=== PATIENT | male | born 1995 | race Caucasian/White ===

== ENCOUNTER 2018-02-06 09:31 | Emergency (ER) | payer SELFPAY ==
[~2018-02-06] VITALS: Ht 170.2 cm; Wt 72.6 kg
--- NOTE | 2018-02-06 09:52 | NUR ---
PT AMBULATES TO BED 3
[2018-02-06 09:55] VITALS: BP 143/68
--- NOTE | 2018-02-06 10:16 | NUR ---
dr arias at bedside for pt evaluation.
--- NOTE | 2018-02-06 10:16 | NUR ---
DR SUMMERS EVALUATING AT BEDSIDE
[2018-02-06] MEDS ORDERED: IBUPROFEN 600 MG TAB PO ONE (10:25)
[2018-02-06] MEDS ORDERED: traMADol 50 MG TAB PO ONE (10:25)
--- NOTE | 2018-02-06 10:28 | NUR ---
pt to xray in stable condition via w/c
[2018-02-06 11:46] VITALS: BP 143/68
== END 2018-02-06 11:47 | disposition home or self-care (01) ==
LOC: MED 09:31
DX: S43.101A Unspecified dislocation of right acromioclavicular joint, initial encounter (principal); Y04.0XXA Assault by unarmed brawl or fight, initial encounter; Y93.89 Activity, other specified; Y92.89 Other specified places as the place of occurrence of the external cause; Y99.8 Other external cause status
CPT/HCPCS: 73030; 99284

== ENCOUNTER 2021-02-05 13:53 | Emergency (ER) | payer OTHER ==
[~2021-02-05] VITALS: Ht 170.2 cm; Wt 68.0 kg
[2021-02-05 14:07] VITALS: BP 162/81
--- NOTE | 2021-02-05 14:11 | NUR ---
PT TO AWAIT IN LOBBY
--- NOTE | 2021-02-05 14:44 | NUR ---
PT TAKEN TO XRAY VIA W/C
--- NOTE | 2021-02-05 14:51 | NUR ---
PT RETURNED TO LOBBY
--- NOTE | 2021-02-05 15:16 | NUR ---
LIA SILVEIRA EXAMINING PT
[2021-02-05 15:26] VITALS: BP 141/92
--- NOTE | 2021-02-05 15:27 | NUR ---
Patient discharged with v/s stable. Written and verbal after care instructions given and explained. Patient verbalized understanding. Ambulatory with steady gait. All questions addressed prior to discharge. Advised to follow up with PMD.
--- NOTE | 2021-02-05 15:27 | NUR ---
NO NURSING INTERVENTIONS PROVIDED
== END 2021-02-05 15:27 | disposition home or self-care (01) ==
LOC: MED 13:53
DX: M25.511 Pain in right shoulder (principal); X50.0XXA Overexertion from strenuous movement or load, initial encounter; Y93.89 Activity, other specified; Y92.89 Other specified places as the place of occurrence of the external cause; Y99.8 Other external cause status
CPT/HCPCS: 73030; 99283

== ENCOUNTER 2021-07-18 10:23 | Emergency (ER) | payer OTHER ==
[~2021-07-18] VITALS: Ht 167.6 cm; Wt 72.1 kg
[2021-07-18 10:26] VITALS: BP 168/91
--- NOTE | 2021-07-18 10:59 | NUR ---
DR BAILEY EVALUATED PATIENT, NO NURSING INTERVENTIONS NOTED AT THIS TIME.
--- NOTE | 2021-07-18 11:00 | NUR ---
Patient discharged with v/s stable. Written and verbal after care instructions ABOUT CHRONIC KNEE PAIN given and explained. Patient verbalized understanding. Ambulatory with steady gait. All questions addressed prior to discharge. Advised to follow up with PMD.
== END 2021-07-18 11:00 | disposition home or self-care (01) ==
LOC: MED 10:23
DX: G89.29 Other chronic pain (principal); M25.561 Pain in right knee
CPT/HCPCS: 99281

== ENCOUNTER 2022-10-27 14:19 | Emergency (ER) | payer OTHER ==
[~2022-10-27] VITALS: Ht 170.2 cm; Wt 72.1 kg
[2022-10-27 14:51] VITALS: BP 122/71
[2022-10-27] MEDS ORDERED: IBUP-2213 PO (15:10)
== END 2022-10-27 16:36 | disposition home or self-care (01) ==
LOC: MED 14:19
DX: M25.511 Pain in right shoulder (principal); R03.0 Elevated blood-pressure reading, without diagnosis of hypertension; Z79.1 Long term (current) use of non-steroidal anti-inflammatories (NSAID)
CPT/HCPCS: 99282